=== PATIENT | male | born 1985 | race Caucasian/White ===

== ENCOUNTER 2017-06-13 01:03 | Emergency (ER) | payer SELFPAY ==
[~2017-06-13] VITALS: Ht 180.3 cm; Wt 69.8 kg
[~2017-06-13 01:03] MED LIST: ALBUTEROL S2.5 MG/.5 IN; BACTRIM DS1 TAB OR; CEPHALEXIN500 MG OR; FLEXERIL5 M1 PO; FLOVENT HFA110 MCG IN; IMODIUM2 MG PO; MEDDOSEPAK OR; NAPROSYN500 MG PO; PROVENTIL HFA IN; PROVENTIL0.083 % IN; PROVENTIL90 MCG IN; VENTOLIN HF1 IN; ZPAK OR
[2017-06-13] MEDS ORDERED: MOTRIN400 MG PO (01:56)
[2017-06-13 02:23] VITALS: BP 122/69
== END 2017-06-13 02:21 | disposition home or self-care (01) | DRG 563 ==
LOC: ED 01:03
PROC: 2W3EX1Z Immobilization of Right Hand using Splint (ICD-10-PCS; principal; 2017-06-13)
DX: S62.336A Displaced fracture of neck of fifth metacarpal bone, right hand, initial encounter for closed fracture (principal); W22.8XXA Striking against or struck by other objects, initial encounter; Y92.000 Kitchen of unspecified non-institutional (private) residence as the place of occurrence of the external cause

== ENCOUNTER 2020-02-10 16:08 | Emergency (ER) | payer OTHER ==
[~2020-02-10] VITALS: Ht 180.3 cm; Wt 68.2 kg
[~2020-02-10 16:08] MED LIST changes: +MOTRIN400 MG PO
[2020-02-10] MEDS ORDERED: PROAIR HFA IN (16:33)
[2020-02-10] MEDS ORDERED: HYDROCO/APAP1 TA9 PO (16:54)
[2020-02-10] MEDS ORDERED: VIGAMOX OS (16:54)
[2020-02-10 17:16] VITALS: BP 122/73
== END 2020-02-10 17:16 | disposition home or self-care (01) ==
LOC: ED 16:08
DX: S05.01XA Injury of conjunctiva and corneal abrasion without foreign body, right eye, initial encounter (principal); J45.909 Unspecified asthma, uncomplicated; X58.XXXA Exposure to other specified factors, initial encounter

== ENCOUNTER 2020-03-27 07:36 | Emergency (ER) | payer OTHER ==
[~2020-03-27] VITALS: Ht 180.3 cm; Wt 68.0 kg
[~2020-03-27 07:36] MED LIST changes: +HYDROCO/APAP1 TA9 PO; +PROAIR HFA IN; +VIGAMOX OS
[2020-03-27] MEDS ORDERED: KEFLEX500 M1 PO (09:10)
[2020-03-27 10:01] VITALS: BP 143/86
== END 2020-03-27 10:01 | disposition home or self-care (01) ==
LOC: ED 07:36
DX: S61.213A Laceration without foreign body of left middle finger without damage to nail, initial encounter (principal); J45.909 Unspecified asthma, uncomplicated; F17.200 Nicotine dependence, unspecified, uncomplicated; W20.8XXA Other cause of strike by thrown, projected or falling object, initial encounter; Y93.89 Activity, other specified; Y92.71 Barn as the place of occurrence of the external cause